=== PATIENT | male | born 1980 | race Caucasian/White ===

== ENCOUNTER 2016-10-01 20:00 | Inpatient (IN) | payer OTHER ==
[~2016-10-01] VITALS: Ht 177.8 cm; Wt 63.5 kg
--- NOTE | ~2016-10-01 | PN ---
Unit #: [id number] #: [id number] Patient: JEMIMA CRAFT [id number] [facility] [address] [place] [address] [id number] MR#: [id number] NAME: JEMIMA CRAFT ROOM: P211 Age: 36 Sex: M Admission Date: 10/01/2016 : 1980 Attending Physician: Soumya Pinto M.D. Admitting Physician: Soumya Pinto M.D. Primary Care Physician: Primary Care Physician Michelle CHOPRA NOTES DATE October 05, 2016 DISCUSSION Mr. Craft is a 36-year-old white male, who was seen today and chart was reviewed and the case was discussed with the staff. He has been doing fairly well and has been showing improvement in his depression and anxiety, and has been cooperative with the treatment recommendations and he has been taking the medications and tolerating them fairly well with no reported side effects. MENTAL STATUS EXAMINATION Young white male, who was casually dressed with fair personal hygiene and appears to be in no acute distress or discomfort. He was awake and alert on interaction with intact orientation. His mood is anxious with a congruent affect. His speech is slow and goal-directed. He denies any suicidal or homicidal ideations, and also denies any auditory or visual hallucinations. His insight and judgment remain slightly impaired. TREATMENT PLAN 1. We will continue him on his current medications and treatment protocol, and will monitor his response to the medications, and make further adjustments as needed. 2. We will continue to followup. Dictated by... Alexys Leon/pam TD: 10/06/2016 08:48 JOB #: [id number] Unit #: [id number] #: [id number] Patient: JEMIMA CRAFT PROGRESS NOTES Page 1 of 1 X Soumya Pinto MD PROGRESS NOTE
--- NOTE | ~2016-10-01 | HP ---
Unit #: [id number] #: [id number] Patient: JEMIMA CRAFT [id number] [place] [address] [id number] MR#: [id number] NAME: JEMIMA CRAFT ROOM: P210 Age: 36 Sex: M Admission Date: 10/01/2016 : 1980 Attending Physician: Soumya Pinto M.D. Admitting Physician: Soumya Pinto M.D. Primary Care Physician: Primary Care Physician No HISTORY AND PHYSICAL HISTORY OF PRESENT ILLNESS Jemima is a 36 year old admitted to [address] [place] [address] because of his polysubstance abuse which includes opioids and benzodiazepines. PAST MEDICAL HISTORY History of illicit substance abuse. PAST SURGICAL HISTORY Cervical disc. ALLERGIES No known drug allergies. SOCIAL HISTORY Smokes 1 pack per day. Denies alcohol and illicit drug use. FAMILY HISTORY Medically noncontributory. REVIEW OF SYSTEMS CONSTITUTIONAL: No fever or chills. HEENT: Denies any sore throat, ear pain or runny nose. CARDIOVASCULAR: Denies chest pain, irregular heart rhythm or palpitations. CHEST: Denies shortness of breath or cough. No hemoptysis. GASTROINTESTINAL: Denies nausea, vomiting, diarrhea or chronic constipation. ENDOCRINE: Denies history of increased thirst or urination. No recent significant weight loss or gain. GENITOURINARY: Denies dysuria, frequency, or hematuria. SKIN: Denies any rashes. HEMATOLOGIC: Denies history of increased bleeding or bruising. MUSCULOSKELETAL: Denies any hot, swollen joints. No generalized muscle pain. NEUROLOGIC: Denies problems with vision or speech. No frequent, severe headaches. No numbness, tingling or weakness in any extremities. Denies loss of bladder or bowel control. CURRENT MEDICATIONS 1. Strattera 40 mg daily. 2. Wellbutrin XL 150 mg q.a.m. 3. Zyprexa 5 mg b.i.d. 4. Nicotine patch 14 mg daily. 5. Benadryl p.r.n. Unit #: [id number] #: [id number] Patient: JEMIMA CRAFT 6. Milk of Magnesia p.r.n. 7. Maalox p.r.n. 8. Tylenol p.r.n. PHYSICAL EXAMINATION GENERAL: Alert, well-nourished, in no apparent distress. VITAL SIGNS: Blood pressure 144/88, heart rate 80, respirations 16, temperature 98.6. WEIGHT: 140. HEIGHT: 5 feet 10 inches. SKIN: Warm and dry without rash or lesion. HEENT: Normocephalic. TMs not viewed. Oral and nasal passages clear. Conjunctivae clear. PERRLA. EOMs intact. NECK: Supple without lymphadenopathy or thyromegaly. HEART: Regular rate and rhythm without murmur. LUNGS: Clear. ABDOMEN: Soft, nontender. : Not done. EXTREMITIES: No evidence of cyanosis, clubbing or edema. Moves all without focal deficit. NEUROLOGICAL: Grossly within normal limits. Cranial Nerves: II: Visual batista are intact. III, IV AND : Extraocular movements are intact. Pupils are equal, round and reactive to light. V: Facial sensation is grossly normal. VII: Facial movements and expression are normal. VIII: Auditory acuity grossly intact. IX, X: Uvula is midline. Phonation is normal. XI: Patient shrugs shoulders and turns head normally. XII: Tongue protrudes in the midline. Sensory and Motor Function: Sensory and motor sensation is grossly normal. Motor: moves all extremities well. Coordination: Gait is normal. Deep Tendon Reflexes: Intact. IMPRESSION Psychiatric admission. RECOMMENDATIONS PSYCHIATRIC: Per psychiatrist. MEDICAL: See no contraindication to participate in facility's activities. MEDICAL PROGNOSIS Good. MEDICAL CONDITION Stable. Dictated by... [place] Lopez P.A.-C. for Alexys Cevallos/hialy TD: 10/02/2016 17:48 JOB #: [id number] Unit #: [id number] #: [id number] Patient: JEMIMA CRAFT HISTORY AND PHYSICAL Page 1 of 1 X [place] Lopez HISTORY AND PHYSICAL
--- NOTE | ~2016-10-01 | PN ---
Unit #: [id number] #: [id number] Patient: JEMIMA CRAFT [id number] [facility] [address] [place] [address] [id number] I MR#: [id number] NAME: JEMIMA CRAFT ROOM: P210 Age: 36 Sex: M Admission Date: 10/01/2016 : 1980 Attending Physician: Soumya Pinto M.D. Admitting Physician: Soumya Pinto M.D. Primary Care Physician: Primary Care Physician Michelle CHOPRA NOTES DATE 10/03/2016 DISCUSSION Mr. Craft is a 36-year-old white male who was seen today and chart was reviewed and case was discussed with the staff. He has been anxious, withdrawn and restless and reports not feeling good and has been complaining of significant anxiety. Meanwhile, he has been taking medications and tolerating them fairly well with no reported side effects. MENTAL STATUS EXAMINATION Young white male who was casually dressed with fair personal hygiene and appears to be in no acute distress or discomfort. He was awake and alert on interaction with intact orientation. His mood was anxious with congruent affect. His speech is slow and goal-directed. He denies any suicidal or homicidal ideations and also denies any auditory or visual hallucinations. His insight and judgement remains slightly impaired. TREATMENT PLAN Will continue on his current treatment protocol. Will monitor his response and make further adjustments as needed. Dictated by... Soumya Pinto M.D. IAA/haily TD: 10/03/2016 18:24 JOB #: [id number] Unit #: [id number] #: [id number] Patient: JEMIMA CRAFT MARZENA CHOPRA NOTES Page 1 of 1 X Soumya Pinto MD PROGRESS NOTE
--- NOTE | ~2016-10-01 | PN ---
Unit #: [id number] #: [id number] Patient: JEMIMA CRAFT [id number] [facility] [address] [place] [address] [id number] MR#: [id number] NAME: JEMIMA CRAFT ROOM: P211 Age: 36 Sex: M Admission Date: 10/01/2016 : 1980 Attending Physician: Soumya Pinto M.D. Admitting Physician: Soumya Pinto M.D. Primary Care Physician: Primary Care Physician Michelle CHOPRA NOTES DATE October 04, 2016 DISCUSSION Mr. Craft is a 36-year-old white male, who was seen today and chart was reviewed and the case was discussed with the staff. He has been anxious, withdrawn, and rather seclusive to himself. Meanwhile, he has been cooperative with the treatment recommendations and he has been taking the medications and tolerating them fairly well with no reported side effects. MENTAL STATUS EXAMINATION Young white male, who was casually dressed with fair personal hygiene and appears to be in no acute distress or discomfort. He was awake and alert on interaction with intact orientation. His mood is anxious with a congruent affect. He denies any suicidal or homicidal ideations. His insight and judgment remain slightly impaired. TREATMENT PLAN 1. We will continue him on his current medications and treatment protocol, and will monitor his response to the medications, and make further adjustments as needed. 2. We will continue to followup. Dictated by... Alexys Leon/pam TD: 10/05/2016 11:01 JOB #: [id number] Unit #: [id number] #: [id number] Patient: JEMIMA CRAFT MARZENA CHOPRA NOTES Page 1 of 1 X Soumya Pinto MD PROGRESS NOTE
--- NOTE | ~2016-10-01 | PA ---
Unit #: [id number] #: [id number] Patient: JEMIMA CRAFT [id number] [facility] [address] [place] [address] [id number] MR#: [id number] NAME: JEMIMA CRAFT ROOM: P210 Age: 36 Sex: M Admission Date: 10/01/2016 : 1980 Date of Assessment: Attending Physician: Soumya Pinto M.D. Admitting Physician: Soumya Pinto M.D. Primary Care Physician: Primary Care Physician No PSYCHIATRIC ASSESSMENT IDENTIFYING DATA Mr. Craft is a 36-year-old single white male, who was a resident of [place], [place], and who was self-referred to the hospital on a voluntary basis. CHIEF COMPLAINT "I think it is a combination of being off my psychiatric medicines and my being homeless, I am tired of fighting." HISTORY OF PRESENT ILLNESS Mr. Craft is a 36-year-old white male, with substance abuse and mood disorder, who came to the hospital stating that he had been under a lot of stress and he has been off of his medications, and he has been homeless and he is tired of fighting, "I'm 72 years old and I fell on my face trying to live on my own, and taking care of myself, I am supposed to be on several medications, and I am real ADHD and it is hard for me to retain information and it is really frustrating for me because I had a hard time getting what is in my head through my mouth, my Adderall was not helping me anymore so I quit taking it, I came home paranoid all the time, and paranoid anyway, I am withdrawn from people, my family sent traffic or system dispatcher over to check on my welfare, I just get these thoughts and these voices telling me I am a piece of crap." He was seen to be extremely agitated, irritable, depressed, anxious, withdrawn, and reported suicidal thoughts and as such recommendations for inpatient level of care and stabilization was made and the patient was admitted to inpatient unit. SUBSTANCE ABUSE HISTORY The patient reports history of cannabis abuse but denies any other history of substance abuse. PAST PSYCHIATRIC HISTORY The patient has a history of inpatient psychiatric hospitalization at [facility] as well as [facility] via medical records, he was diagnosed and treated for mood disorder and was supposed to be on Zyprexa and Wellbutrin but has been noncompliant with the medications and as such has been decompensating. PAST MEDICAL HISTORY The patient's medical history is insignificant. MEDICATION ALLERGIES No known medication allergies. Unit #: [id number] #: [id number] Patient: JEMIMA CRAFT PERSONAL AND SOCIAL HISTORY This is a 36-year-old white male, who reports that he is single, unemployed, and essentially homeless and has poor social skills. MENTAL STATUS EXAM Young white male, who was casually dressed with fair personal hygiene and appears to be in no acute distress or discomfort. He was awake and alert on interaction with intact orientation to time, place, and person. His mood is anxious and depressed with a congruent affect. His speech is slow and restricted in content. His thought processes are disorganized with some looseness of associations, flight of ideas, and suicidal ideations, and auditory hallucinations. His insight and judgment remain significantly impaired. DIAGNOSTIC IMPRESSION Psychiatric: [place] I: Bipolar disorder, most recent episode depressed, recurrent, moderate, with psychosis. Attention deficit hyperactivity disorder by history. [place] II: [place] III: None. [place] IV: Moderate psychosocial stressors. [place] V: TREATMENT PLAN 1. The patient has presented with history of mood disorder, and has been decompensated and will need inpatient hospitalization for safety and stabilization, starting back on his home medications and will adjust the medications and will monitor his response and make further adjustments as needed. 2. Supportive therapy was provided to the patient. 3. Safe, structured, and nourishing environment will be provided. ESTIMATED LENGTH OF STAY [id number] days. ABILITY TO HELP SELF Limited to help self. WILLINGNESS TO HELP SELF The patient appears to be willing to help self. STRENGTHS 1. Communicative. 2. Cooperative. PROBLEMS 1. Chronic dysphoric symptoms. 2. Poor social support system. DISCHARGE CRITERIA This will be contingent upon the patient's ability to show resolution of his depression and anxiety, and his ability to stay safe to himself, particularly after discharge from the hospital. Dictated by... Unit #: [id number] #: [id number] Patient: JEMIMA CRAFT Alexys Leon TD: 10/02/2016 11:13 JOB #: [id number] PSYCHIATRIC ASSESSMENT Page 1 of 1 X Soumya Pinto MD PSYCHIATRIC ASSESSMENT
--- NOTE | ~2016-10-01 | DS ---
Unit #: [id number] #: [id number] Patient: [facility] [id number] [facility] [address] [place] [address] [id number] I MR#: [id number] NAME: JEMIMA CRAFT ROOM: [facility] Age: 36 Sex: M Admission Date: 10/01/2016 : 1980 Discharge Date: 10/06/2016 Attending Physician: Soumya Pinto M.D. Primary Care Physician: Primary Care Physician No DISCHARGE SUMMARY IDENTIFICATION DATA Mr. Craft is a 36-year-old single white male who is a resident of [place], [place], who was self-referred to the hospital on voluntary basis. DISCHARGE DIAGNOSES PSYCHIATRIC: Bipolar disorder, most recent episode, depressed, recurrent, moderate, with psychosis. Attention deficit hyperactivity disorder. MEDICAL: None. STRESSORS: Moderate psychosocial stressors. HISTORY OF PRESENT ILLNESS Same as in initial psychiatric evaluation. PAST PSYCHIATRIC HISTORY Same as in initial psychiatric evaluation. PAST MEDICAL HISTORY Same as in initial psychiatric evaluation. HOSPITAL COURSE The patient was admitted to the adult psychiatric unit at [facility] lorena Armas and was oriented to the hospital environment. Routine p.r.n. medications were initiated, and he was started back on his home medications. Medications were adjusted, and he was closely monitored. He was taking the medications regularly and was tolerating them fairly well and was able to show a decent therapeutic response with improvement in depression and anxiety and was willing to continue treatment on outpatient basis. As such it was decided that he will be kept on his current medication and will be discharged home and will continue treatment on outpatient basis. DISCHARGE MEDICATIONS 1. Wellbutrin XL 300 mg in the morning for depression. 2. Zyprexa 5 mg twice a day for bipolar. 3. Strattera 40 mg in the morning for ADHD. 4. Vistaril 50 mg 3 times a day as needed for anxiety. CONDITION AT DISCHARGE Stable. PROGNOSIS Fair. Unit #: [id number] #: [id number] Patient: JEMIMA CRAFT Dictated by... Soumya Pinto M.D. IAA/bzg TD: 10/07/2016 10:12 JOB #: [id number] DISCHARGE SUMMARY Page 1 of 1 X Soumya Pinto MD DISCHARGE SUMMARY
[~2016-10-01 20:00] MED LIST: PEN-VEE K PO; ULTRAM PO
[2016-10-02 10:22] LABS: URINE APPEARANCE CLEAR; URINE BILIRUBIN NEG (NEG); URINE BLOOD 1+ (NEG); URINE COLOR YELLOW; URINE GLUCOSE NEG (NEG); URINE KETONE NEG (NEG); URINE LEUKOCYTE ESTERASE NEG (NEG); URINE NITRATE NEG (NEG); URINE PROTEIN NEG (NEG); URINE SPECIFIC GRAVITY 1.022 (1.003-1.035)
[2016-10-02 10:22] LABS: BASOPHIL% 0.7 % (0-2.5); EOSINOPHIL# 0.6 X10e3 (0-0.7); EOSINOPHIL% 10.4 % (0.0-7.0); HEMATOCRIT 40.3 % (38.0-50.0); HEMOGLOBIN 14.3 gm/dL (13.0-16.0); LYMPHOCYTE# 1.4 X10e3 (1.0-3.5); LYMPHOCYTE% 25.4 % (17.0-45.0); MEAN CELL VOLUME 94.5 FL (83-96); MEAN CORPUSCULAR HEMOGLOBIN 33.5 PG (28-34); MEAN CORPUSCULAR HGB CONC 35.5 g/dL (30-36); MEAN PLATELET VOLUME 7.1 FL (6.5-11.5); MONOCYTE# 0.5 X10e3 (0-1.0); NEUTROPHIL# 2.9 X10e3 (1.5-7.1); NEUTROPHIL% 54.5 % (40-75); PLATELET COUNT 251 X10e3 (140-420); RED BLOOD COUNT 4.26 X10e (3.90-5.60); RED CELL DISTRIBUTION WIDTH 13.7 % (11.0-15.5); WHITE BLOOD COUNT 5.4 X10e3 (4.0-10.5)
[2016-10-02 10:23] LABS: DIFF IND NO
[2016-10-02 10:29] LABS: ALBUMIN SERUM 4.1 g/dL (3.5-5.0); BILIRUBIN,TOTAL 0.9 mg/dL (0.2-2.0); BUN/CREATININE RATIO 14.44; CREATININE SERUM 0.9 mg/dL (0.6-1.4); GLOM FILT RATE Estimated 108.7 mL/min (>60); PROTEIN TOTAL SERUM 6.1 g/dL (6.0-8.3)
[2016-10-02 10:30] LABS: URINE BACTERIA AUWI NEG (NEGATIVE); URINE SQUAMOUS EPITHELIAL CELL NONE SEEN /[HPF]; UWBCS1 AUWI 0-2 (0-5)
[2016-10-02 10:45] LABS: AMPHETAMINE NEG (NEG); BARBITURATES NEG (NEG); BENZODIAZEPINES NEG (NEG); COCAINE NEG (NEG); MARIJUANA NEG (NEG); OPIATES NEG (NEG); TRICYCLIC ANTIDEPRESSANTS NEG (NEG); U METHADONE NEG (NEG)
== END 2016-10-06 10:40 | DRG 885 ==
LOC: P2S 23:01
PROVIDERS: Psychiatry & Neurology Psychiatry
DX: F31.5 Bipolar disorder, current episode depressed, severe, with psychotic features (principal); F17.210 Nicotine dependence, cigarettes, uncomplicated; F90.9 Attention-deficit hyperactivity disorder, unspecified type
CPT/HCPCS: 80053; 80307; 81003; 85025